=== PATIENT | female | born 1985 | race Caucasian/White ===

== ENCOUNTER 2023-12-13 10:40 | Emergency (ER) | payer OTHER, SELFPAY ==
[2023-12-13 10:40] VITALS: BP 108/71; PULSE 65; RESP 14; TEMP 36.3; O2SAT 100; BMI 23.2
--- NOTE | 2023-12-13 11:05 | EDS_ITS ---
HPI History of Present Illness Chief Complaint: Syncope Detail of Chief Complaint: Passed out during mammogram study Informant: patient Onset/Context/Timing Onset: Hours Context: Sudden Onset Timing: Intermittent Quality: Patient had a mammogram performed. She passed out due to pain Current Severity: Gone Maximum Severity: Moderate Worsened by: Pain, vasovagal event Relieved by: Not applicable Associated Symptoms Associated Symptoms: Nausea, tunnel vision diaphoresis Narrative Narrative: Patient is a 38-year-old woman. She was having a mammogram performed. Her coral st was being squeezed in the machine. She is experience of your pain. She became pale, nauseated and blacked out. Her head may have bobs and radiologist concerned she may had a seizure. Patient is on no medication. She has no medical history. Prior similar symptoms: No Recent Illness/Hospitalization: No PFSH PFS Medical History Rosacea Breast lump Home Medications ?Medication ?Instructions ?Recorded ?Last Taken ?Type NK 08/16/23 Unknown History Allergy/AdvReac Type Severity Reaction Status Date / Time penicillamine Allergy Mild Swelling Verified 12/13/23 10:40 Family History Mother Anemia Brother Asthma Anxiety Grandmother Diabetes Hypertension High cholesterol Grandfather Cancer prostate Surgical History History of delivery Social History household members: spouse, children and other details: 2 dogs, 2 bunnies housing: house number of children: 3 current occupational status: employed 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) Smoking Status: Never smoker Electronic Cigarette Use: not used alcohol intake: current alcohol intake frequency: holidays/special occasions only substance use type: does not use what type of physical activity do you participate in: walking and weight training frequency: 3-4 times per week seatbelt use: always do you feel safe at home: Yes ROS ROS ED Eyes Eyes: Reports change in vision bilateral Cardiovascular Cardiovascular: Denies chest pain or palpitations Respiratory/Chest Respiratory/Chest: Denies dyspnea Gastrointestinal Gastrointestinal: Reports nausea; Denies abdominal pain, melena or vomiting Neurologic Neurologic: Denies headache(s) EXAM Physical Exam Const Vital Signs: 12/13/23 10:40 Temperature 97.3 F L Temperature Source Temporal Pulse Rate 65 Respiratory Rate 14 Blood Pressure 108/71 Blood Pressure Mean 83 Pulse Ox 100 Oxygen Delivery Method Room Air Positive well nourished and well developed General Appearance ED: well developed and NAD; Negative for pallor HEENT Reports moist mucous membranes HEENT Narrative: Atraumatic normocephalic. Eyes PERRL and EOMs intact bilaterally Resp normal respiratory effort and clear to auscultation bilaterally Cardio regular rate, regular rhythm, S1 normal heart sound, S2 normal heart sound and no murmurs GI normal to inspection, nondistended, normoactive bowel sounds, non-tender, non- distended and no masses; Negative for hepatosplenomegaly Extremity normal to inspection Neuro oriented x3 and CN's II-XII intact bilaterally Sensorium / Orientation: alert Psych mental status grossly normal Skin no rashes or lesions noted, no wounds and skin turgor normal General Skin Exam: elasticity normal; Negative for jaundice or pallor MDM MDM MDM Narrative Medical decision making narrative: Patient history and physical is consistent with vasovagal event. Per literature there is no indication for any laboratory testing and EKG is not warranted if the history is consistent with a vasovagal event, which this is. Even if patient did seizes would be due to lack of blood flow and is not unheard of. History & Record Review Additional record(s) reviewed:: Prior outpatient record (Annual exam internal medicine August 15, 2023. And August 2012 supervision of normal ) Discharge Plan Triage Chief Complaint: Syncope ED Provider: Eusebio Nieves Dx/Rx/DC Orders Clinical Impression: Syncope, vasovagal Instructions: ED Fainting, Vagal Reaction Prescriptions: No Action NK Referrals: Doctor,Your [Non-Staff] - As Needed Print Language: Portuguese Disposition Disposition: Home, Self Care
--- NOTE | 2023-12-13 11:07 | NURSING ---
no old ekgs
--- NOTE | 2023-12-13 11:30 | EKG12_ITS ---
Test Reason : SYNCOPE Blood Pressure : / mmHG Vent. Rate : 067 BPM Atrial Rate : 067 BPM P-R Int : 136 ms QRS Dur : 082 ms QT Int : 364 ms P-R-T Axes : 058 071 053 degrees QTc Int : 384 ms Normal sinus rhythm Normal ECG Confirmed by PORTER STOUT, FUNMI ([id number]), dictionary editor EUGENIA ULLOA ([id number]) on 12/16/2023 6:22:05 AM Referred By: ES/UG Confirmed By:FUNMI BUENROSTRO MD
[2023-12-13 11:37] VITALS: BP 114/71; PULSE 81; RESP 16; TEMP 36.6; O2SAT 99
== END 2023-12-13 11:38 | disposition home or self-care (01) ==
LOC: ED 11:29
PROVIDERS: Emergency Provider Emergency Medicine; PCP Internal Medicine; Visit Provider Emergency Medicine
DX: R55 Syncope and collapse (principal); R11.0 Nausea
CPT/HCPCS: 93005; 99282